=== PATIENT | female | born 1975 | race Caucasian/White ===

== ENCOUNTER 2020-11-26 11:20 | Inpatient (IN) ==
--- NOTE | 2020-11-26 12:31 | XRay Report ---
XR chest 1V portable CLINICAL HISTORY: Atypical chest pain COMPARISON STUDY: No previous studies for comparison. FINDINGS: The cardiac and mediastinal contours are normal. There is no evidence of focal pulmonary co nsolidation. There is no evidence of failure. No pleural effusions are visualized.[ IMPRESSION: No active disease in the chest. ACT 112: Negative or not required by law. Electronically signed by: Pranav Mansfield M.D. 11/26/2020 12:30 PM
[2020-11-26 12:41] LABS: Basophils # (auto) 0.03 K/uL (0-0.2); Basophils % (auto) 0.3 %; Eosinophils # (auto) 0.08 K/uL (0-0.5); Eosinophils % (auto) 0.8 %; Hematocrit (blood only) 42.7 % (37-47); Hemoglobin 15.1 g/dL (12.0-16.0); Immature Granulocytes # (auto) 0.03 K/uL (0.00-0.02); Immature Granulocytes % (auto) 0.3 %; Lymphocytes # (auto) 2.87 K/uL (1.2-3.4); Lymphocytes % (auto) 29.7 %; Mean Corpuscular Hemoglobin 30.8 pg (25-34); Mean Corpuscular Hgb Conc 35.4 g/dL (32-36); Mean Platelet Volume 8.9 fL (7.4-10.4); Monocytes # (auto) 0.55 K/uL (0.11-0.59); Monocytes % (auto) 5.7 %; Neutrophils # (auto) 6.09 K/uL (1.4-6.5); Neutrophils % (auto) 63.2 %; Platelet Count 406 K/uL (130-400); RDW Coefficient of Variation 13.2 % (11.5-14.5); Red Blood Count 4.91 M/uL (4.2-5.4); White Blood Count 9.65 K/uL (4.8-10.8)
[2020-11-26 13:12] LABS: Alanine Aminotransferase 27 U/L (12-78); Albumin Globulin Ratio 0.9 (0.9-2); Albumin Level 4.2 gm/dl (3.4-5.0); Alkaline Phosphatase 116 U/L (45-117); Aspartate Aminotransferase 19 U/L (15-37); BUN Creatinine Ratio 11.9 (10-20); Bilirubin,Total 0.8 mg/dl (0.2-1); Blood Urea Nitrogen 11 mg/dl (7-18); Calcium 9.1 mg/dl (8.5-10.1); Carbon Dioxide 25 mmol/L (21-32); Chloride 100 mmol/L (98-107); Creatinine Clr Calc Pharmacy 74.5 ml/min; Est GFR (African American) 89.6 ml/min; Est GFR (Non-African American) 77.3 ml/min; Globulin 4.8 gm/dl (2.5-4.0); Glucose 103 mg/dl (70-99); Potassium 2.3 mmol/L (3.5-5.1); Sodium 135 mmol/L (136-145); Troponin I < 0.015 ng/ml (0-0.045)
--- NOTE | 2020-11-26 14:06 | Electrocardiogram Report ---
Test Reason : Blood Pressure : / mmHG Vent. Rate : 077 BPM Atrial Rate : 077 BPM P-R Int : 142 ms QRS Dur : 086 ms QT Int : 426 ms P-R-T Axes : 056 004 102 degrees QTc Int : 482 ms Normal sinus rhythm Abnormal ECG When compared with ECG of 11-MAR-2018 09:30, Vent. rate has increased BY 26 BPM Inverted T waves have replaced nonspecific T wave abnormality in Lateral leads QT has lengthened Confirmed by Lorne Robert ([id number]) on 11/26/2020 2:05:40 PM Referred By: Confirmed By:Lorne Robert
--- NOTE | 2020-11-26 15:28 | Emergency Department Note ---
History of Present Illness General Chief complaint: Chest Pain Stated complaint: CHEST PAIN, VERTIGO, HANDS/ FEET TINGLY Time Seen by Provider: 11/26/20 14:50 History of Present Illness Maximum Pain Intensity: 5 -Patient is a 45-year-old female recently diagnosed with hypertension, who pr esents the emergency department for evaluation of episodes of chest pain and headache that is been present for about a week. Patient states that she had a right total knee arthroplasty performed at [facility] 3 months ago. While in the hospital her blood pressure continually was high, and she was diagnosed with hypertension. She was placed on Norvasc 10 mg and hydrochlorothiazide 25 mg. She has been taking these medications as prescribed. In the last week, she has noticed episodes of chest discomfort and pressure. It is pinpoint and located in the left upper chest. With the discomfort she also has associated headache and some slight shortness of breath. She is also noticed some swelling in her legs, and over the weekend began to have some tingling in her hands and in her feet. She has been checking her blood pressure at home, and the diastolic number has been high, in the 90s. She also has noticed episodes of increased heart rate, as documented by her apple watch. She currently only has a minor headache, is not currently experiencing any chest pain. She called her family doctor's office, and they referred her to the emergency department. Postoperatively, she was on a baby aspirin for DVT prophylaxis. Home Medications Medication Instructions Recorded Confirmed Type amlodipine 10 mg tablet 10 mg PO QAM 11/26/20 11/26/20 History esomeprazole magnesium 20 mg 20 mg PO QAM 11/26/20 11/26/20 History capsule,delayed release (Nexium) hydrochlorothiazide 25 mg tablet 25 mg PO QAM 11/26/20 11/26/20 History ibuprofen 200 mg tablet 400 mg PO Q6H PRN 11/26/20 11/26/20 History medroxyprogesterone 150 mg/mL 150 mg IM Q90D 11/26/20 11/26/20 History intramuscular suspension Allergies Allergy/AdvReac Type Severity Reaction Status Date / Time Sulfa (Sulfonamide Allergy Severe SHORTNESS Verified 11/26/20 15:53 Antibiotics) OF BREATH prednisone Allergy Intermediate tachy and Unverified 11/26/20 15:53 elevated bp acetaminophen AdvReac Mild Hallucinati Verified 11/26/20 18:23 ng Penicillins AdvReac Mild Nausea Verified 11/26/20 18:23 Past Med/Surg History Medical History GERD (gastroesophageal reflux disease) HTN (hypertension) Surgical History History of total right knee replacement Hx of cholecystectomy Family History Father Lung cancer Mother Uterine cancer Social History Smoking Status: Former smoker Smoking End Date: 2013; Second Hand Exposure: Yes; Do You Dip or Chew Tobacco: No; Tobacco Cessation Education Requested by Patient: No Hx Alcohol Use: No Hx Substance Use: No Preferred Language: Samoan 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 Beliefs That Will Affect Care: None Current Living Situation: Spouse and Family Other Information That Helps Us Care for You: No Feels Safe at Home: Yes Assistive Devices: None Review of Systems A total of 10 systems reviewed and were otherwise negative Physical Exam Vital Signs Vital Signs - 24 hr 11/26/20 11:21 11/26/20 14:46 11/26/20 15:00 Temperature 36.8 C Temperature Source Temporal Artery Scan Pulse Rate 96 H 89 84 Pulse Rate from SpO2 Sensor 90 84 Respiratory Rate 19 25 H 21 Blood Pressure 140/90 141/92 H 134/93 Blood Pressure Mean 106 108 106 Pulse Oximetry 99 100 100 Oxygen Delivery Method Room Air Sepsis Recent Fever Within 48 Hours No Sepsis New/Unexplained Change in Mental Status N/A Sepsis Action Taken by Nursing No Action Required 11/26/20 15:30 11/26/20 16:00 11/26/20 16:30 Temperature Temperature Source Pulse Rate 81 80 Pulse Rate from SpO2 Sensor 82 83 Respiratory Rate 21 24 Blood Pressure 123/88 125/84 118/83 Blood Pressure Mean 99 97 94 Pulse Oximetry 100 99 Oxygen Delivery Method Sepsis Recent Fever Within 48 Hours Sepsis New/Unexplained Change in Mental Status Sepsis Action Taken by Nursing 11/26/20 17:00 11/26/20 17:30 Temperature Temperature Source Pulse Rate 84 89 Pulse Rate from SpO2 Sensor 84 88 Respiratory Rate 21 16 Blood Pressure 116/79 127/89 Blood Pressure Mean 91 101 Pulse Oximetry 100 98 Oxygen Delivery Method Sepsis Recent Fever Within 48 Hours Sepsis New/Unexplained Change in Mental Status Sepsis Action Taken by Nursing CONSTITUTIONAL: Patient is a well-appearing 45-year-old female who is awake and alert and in no acute distress. EYES: Pupils equal, round, reactive to light and accommodation. EOMs intact without nystagmus. Sclera are anicteric. ENT: Tympanic membranes intact, with normal landmarks. External canals are clear. Oral and nasopharynx are clear. Mucous membranes are moist, no lesions, tongue and gums appear normal. CARDIOVASCULAR: Regular rate and rhythm, with normal S1 and S2, no murmur or gallop or rub is heard. Peripheral pulses easy to palpable. RESPIRATORY: Breath sounds equal and clear to auscultation without wheezes, rales, or rhonchi heard. Full and equal chest expansion without accessory muscle use or retractions. GI: Bowel sounds are present. Abdomen is soft, nontender, nondistended. No organomegaly. No pulsatile masses. No guarding or rebound. MUSCULOSKELETAL: Full range of motion of extremities x 4 with good strength. No cyanosis, edema, joint tenderness or swelling. No deformity. Calves are soft and nontender bilaterally. No pitting edema. INTEGUMENTARY: No lesions or rash, normal skin turgor. NEUROLOGICAL: Alert, oriented, and cooperative. Cranial nerves, sensation and strength grossly intact. Pupils round, equal, and react to light, EOMs are full. LYMPH: No lymphadenopathy. Course Course Patient was seen and assessed as above. Old records are reviewed. Critical pathways have been implemented prior to my assessment of the patient. EKG, chest x-ray and laboratory studies had been obtained including CBC with diffe rential, CMP and troponin. Laboratory studies noted a normal white count at 9600, H&H 15 and 42, platelet count is 406,000. Sodium 135, potassium low at 2.3. The remainder of the electrolytes were within normal limits. Renal functions were normal. Troponin was negative. Transaminases are not elevated. Chest x-ray was unremarkable. EKG was without acute ischemic changes. After my assessment of the patient, I ordered a D-dimer, mag, urine dip and and give the patient 20 mEq of potassium orally. I did also later order 10 mEq K rider x2. Patient's D-dimer was elevated at 1060. Given her symptoms including palpitations, chest pain and leg swelling, I performed a CT scan of the chest to evaluate for PE. Magnesium was normal. Urine dip and test were clear. Chest CT was negative for PE. I did review the patient history and presentation with attending physician. She felt that given the profound hypokalemia, admission/observation was warranted for repletion. This was discussed with the patient and she was in agreement. [facility] Patient was reviewed with DIVYA Huffman. Please refer to admission orders and H&P for further information. Administered Medications Discontinued Medications Potassium Chloride (K Bryson / Wtr) 10 meq in 100 mls @ 100 mls/hr IV Q1H ТАТЬЯНА Stop: 11/26/20 19:29 Last Infusion: 11/26/20 22:41 Dose: 0 mls/hr Documented by: [id number] Admin: 11/26/20 19:02 Dose: 100 mls/hr Documented by: [id number] Infusion: 11/26/20 18:35 Dose: 100 mls/hr Documented by: [id number] Admin: 11/26/20 17:35 Dose: 100 mls/hr Documented by: [id number] Ioversol (Optiray 320 125ml) 120 ml IV ONCE ONE Stop: 11/26/20 16:45 Last Admin: 11/26/20 16:44 Dose: 120 ml Documented by: [id number] Potassium Chloride (Potassium Chloride Crtab 20 Meq Tabcr) 40 meq PO NOW STA Stop: 11/26/20 16:07 Last Admin: 11/26/20 16:09 Dose: 40 meq Documented by: [id number] Potassium Chloride (Potassium Chloride Crtab 20 Meq Tabcr) 40 meq PO ONE STA Stop: 11/26/20 18:53 Last Admin: 11/26/20 19:21 Dose: 40 meq Documented by: [id number] Potassium Chloride (Potassium Chloride Crtab 20 Meq Tabcr) 40 meq PO ONE ONE Stop: 11/26/20 21:01 Last Admin: 11/26/20 22:01 Dose: 40 meq Documented by: [id number] Medical Decision Making Differential Diagnosis Differential diagnosis includes acute myocardial infarction, acute coronary syndrome, myocarditis, pericarditis, pericardial effusions /tamponade, esophageal perforation, pulmonary embolism, pneumonia, pneumothorax, cardiomyopathy, congestive heart failure, anemia , COPD/asthma exacerbation, musculoskeletal, anxiety, costochondritis,. Medical Records Attestation: I reviewed the patient's medical records. Home Medications Current Medication List: was personally reviewed by me Laboratory Data Attestation: I reviewed the patient's lab results. Result diagrams: 11/26/20 12:25 11/26/20 12:25 Lab Results 11/26/20 11/26/20 11/26/20 Range/Units 12:25 12:25 12:25 WBC 9.65 (4.8-10.8) K/uL RBC 4.91 (4.2-5.4) M/uL Hgb 15.1 (12.0-16.0) g/dL Hct 42.7 (37-47) % MCV 87.0 (80-100) fL MCH 30.8 (25-34) pg MCHC 35.4 (32-36) g/dL RDW Std Deviation 42.0 (36.4-46.3) fL RDW Coeff of Rafaela 13.2 (11.5-14.5) % Plt Count 406 H (130-400) K/uL MPV 8.9 (7.4-10.4) fL Immature Gran % (Auto) 0.3 % Neut % (Auto) 63.2 % Lymph % (Auto) 29.7 % Hyde % (Auto) 5.7 % Eos % (Auto) 0.8 % Baso % (Auto) 0.3 % Neut # (Auto) 6.09 (1.4-6.5) K/uL Lymph # (Auto) 2.87 (1.2-3.4) K/uL Hyde # (Auto) 0.55 (0.11-0.59) K/uL Eos # (Auto) 0.08 (0-0.5) K/uL Baso # (Auto) 0.03 (0-0.2) K/uL Immature Gran # (Auto) 0.03 H (0.00-0.02) K/uL PT Cancelled INR Cancelled APTT Cancelled PTT Ratio Cancelled D-Dimer (0-500) ug/L FEU Sodium 135 L (136-145) mmol/L Potassium 2.3 L* (3.5-5.1) mmol/L Chloride 100 (98-107) mmol/L Carbon Dioxide 25 (21-32) mmol/L Anion Gap 10.0 (3-11) BUN 11 (7-18) mg/dl Creatinine 0.91 (0.6-1.2) mg/dl Est Cr Clr Drug Dosing 74.5 ml/min Est GFR ( Amer) 89.6 ml/min Est GFR (Non-Af Amer) 77.3 ml/min BUN/Creatinine Ratio 11.9 (10-20) Glucose 103 H (70-99) mg/dl Calcium 9.1 (8.5-10.1) mg/dl Magnesium (1.8-2.4) mg/dl Total Bilirubin 0.8 (0.2-1) mg/dl AST 19 (15-37) U/L ALT 27 (12-78) U/L Alkaline Phosphatase 116 (45-117) U/L Troponin I < 0.015 (0-0.045) ng/ml Total Protein 9.0 H (6.4-8.2) gm/dl Albumin 4.2 (3.4-5.0) gm/dl Globulin 4.8 H (2.5-4.0) gm/dl Albumin/Globulin Ratio 0.9 (0.9-2) POC Urine Protein (Negative) POC Ur Glucose (UA) (Normal) POC Urine Ketones (Negative) POC Urine Blood (Negative) POC Urine Nitrite (Negative) POC Urine Bilirubin (Negative) POC Urine Urobilinogen (Normal) POC U Leukocyte Esteras (Negative) POC Ur Test (NEG) 11/26/20 11/26/20 11/26/20 Range/Units 12:25 15:25 15:50 WBC (4.8-10.8) K/uL RBC (4.2-5.4) M/uL Hgb (12.0-16.0) g/dL Hct (37-47) % MCV (80-100) fL MCH (25-34) pg MCHC (32-36) g/dL RDW Std Deviation (36.4-46.3) fL RDW Coeff of Rafaela (11.5-14.5) % Plt Count (130-400) K/uL MPV (7.4-10.4) fL Immature Gran % (Auto) % Neut % (Auto) % Lymph % (Auto) % Hyde % (Auto) % Eos % (Auto) % Baso % (Auto) % Neut # (Auto) (1.4-6.5) K/uL Lymph # (Auto) (1.2-3.4) K/uL Hyde # (Auto) (0.11-0.59) K/uL Eos # (Auto) (0-0.5) K/uL Baso # (Auto) (0-0.2) K/uL Immature Gran # (Auto) (0.00-0.02) K/uL PT INR APTT PTT Ratio D-Dimer 1060 H* (0-500) ug/L FEU Sodium (136-145) mmol/L Potassium (3.5-5.1) mmol/L Chloride (98-107) mmol/L Carbon Dioxide (21-32) mmol/L Anion Gap (3-11) BUN (7-18) mg/dl Creatinine (0.6-1.2) mg/dl Est Cr Clr Drug Dosing ml/min Est GFR ( Amer) ml/min Est GFR (Non-Af Amer) ml/min BUN/Creatinine Ratio (10-20) Glucose (70-99) mg/dl Calcium (8.5-10.1) mg/dl Magnesium 2.4 (1.8-2.4) mg/dl Total Bilirubin (0.2-1) mg/dl AST (15-37) U/L ALT (12-78) U/L Alkaline Phosphatase (45-117) U/L Troponin I (0-0.045) ng/ml Total Protein (6.4-8.2) gm/dl Albumin (3.4-5.0) gm/dl Globulin (2.5-4.0) gm/dl Albumin/Globulin Ratio (0.9-2) POC Urine Protein Trace H (Negative) POC Ur Glucose (UA) Normal (Normal) POC Urine Ketones Negative (Negative) POC Urine Blood Trace H (Negative) POC Urine Nitrite Negative (Negative) POC Urine Bilirubin Negative (Negative) POC Urine Urobilinogen Normal (Normal) POC U Leukocyte Esteras Trace H (Negative) POC Ur Test NEG (NEG) Imaging Data Attestation: I personally reviewed and interpreted this imaging study as follows: Radiologist's Impression: Chest X-Ray 11/26/20 12:00 XR chest 1V portable CLINICAL HISTORY: Atypical chest pain COMPARISON STUDY: No previous studies for comparison. FINDINGS: The cardiac and mediastinal contours are normal. There is no evidence of focal pulmonary consolidation. There is no evidence of failure. No pleural effusions are visualized.[ IMPRESSION: No active disease in the chest. ACT 112: Negative or not required by law. Electronically signed by: Pranav Mansfield M.D. 11/26/2020 12:30 PM Chest CTA 11/26/20 16:11 CT ANGIOGRAPHY OF THE CHEST, PULMONARY EMBOLUS PROTOCOL CLINICAL HISTORY: Chest pain. Shortness of breath. Evaluate for pulmonary embolus. COMPARISON STUDY: Chest radiograph performed earlier today. TECHNIQUE: Following IV administration of 120 mL of Optiray, helical axial images of the chest were obtained utilizing the pulmonary embolus protocol. Maximal intensity projections and sagittal and coronal reformats were viewed on an independent 3D workstation. IV contrast was administered without complication. Automated exposure control was utilized for the study. A dose lowering technique was utilized adhering to the principles of ALARA. CT DOSE: 300.18 mGy.cm FINDINGS: No pulmonary emboli are identified. There is no thoracic aortic dissection. The size of the heart is normal. No enlarged thoracic lymph nodes are present. A small hiatal hernia is present. There is no pneumothorax or pleural effusion. There is no consolidation to suggest pneumonia. No suspicious pulmonary nodules are present. There is mild upper lobe predominant paraseptal emphysema. No acute fracture or suspicious lesion is identified within visualized portions of the bony thorax. A hypodense lesion within the medial segment of the left hepatic lobe is partially imaged on this exam. This measures at least 1.3 cm. IMPRESSION: 1. No pulmonary emboli identified. 2. No acute process within the chest. 3. Moderate upper lobe predominant paraseptal emphysema. 4. Small hiatal hernia. ACT 112: Negative or not required by law. Electronically signed by: Nolan Olmos M.D. 11/26/2020 4:58 PM ECG Data Attestation: I personally reviewed and interpreted this ECG as follows: Indication: + chest pain Rate (beats per minute): 77 Rhythm: + normal sinus ECG Burdine: + Normal ECG ST segments: + Nonspecific ST abnormalities; no ST depression or no ST elevation Comparison ECG Date: from (March 2018) Change: the following changes noted (T wave inversions replaced by nonspecific T wave abnormalities.) MDM Narrative See ED course Impression & Plan Hypokalemia, Chest pain Discharge Plan Visit Data Chief Complaint: Chest Pain Stated Complaint: CHEST PAIN, VERTIGO, HANDS/ FEET TINGLY ED Provider: Laure Mahoney ED Midlevel Provider: Tod Damon Discharge Problem: Hypokalemia, Chest pain Patient Disposition: Admitted As Inpatient Discharge Instructions Interventions: ED Discharge Assessment Last Done: 11/26/20 20:07
[2020-11-26 16:00] LABS: POC Urine Bilirubin Negative (Negative); POC Urine Blood Trace (Negative); POC Urine Glucose Normal (Normal); POC Urine Ketones Negative (Negative); POC Urine Leukocytes Trace (Negative); POC Urine Nitrite Negative (Negative); POC Urine Protein Trace (Negative); POC Urine Urobilinogen Normal (Normal)
[2020-11-26] MEDS ORDERED: POTASSIUM CHLORIDE CRTAB 20 MEQ TABCR PO STA ×2 (16:06→18:52)
[2020-11-26 16:11] LABS: D Dimer 1060 ug/L FEU (0-500)
[2020-11-26] MEDS ORDERED: OPTIRAY 320 125ml IV ONE (16:44)
--- NOTE | 2020-11-26 16:59 | CT Scan Report ---
CT ANGIOGRAPHY OF THE CHEST, PULMONARY EMBOLUS PROTOCOL CLINICAL HISTORY: Chest pain. Shortness of breath. Evaluate for pulmonary embolus. COMPARISON STUDY: Chest radiograph performed earlier today. TECHNIQUE: Following IV administration of 120 mL of Optiray, helical axial images of the chest were o btained utilizing the pulmonary embolus protocol. Maximal intensity projections and sagittal and cor onal reformats were viewed on an independent 3D workstation. IV contrast was administered without co mplication. Automated exposure control was utilized for the study. A dose lowering technique was ut ilized adhering to the principles of ALARA. CT DOSE: 300.18 mGy.cm FINDINGS: No pulmonary emboli are identified. There is no thoracic aortic dissection. The size of th e heart is normal. No enlarged thoracic lymph nodes are present. A small hiatal hernia is present. Th ere is no pneumothorax or pleural effusion. There is no consolidation to suggest pneumonia. No suspic ious pulmonary nodules are present. There is mild upper lobe predominant paraseptal emphysema. No acu te fracture or suspicious lesion is identified within visualized portions of the bony thorax. A hypod ense lesion within the medial segment of the left hepatic lobe is partially imaged on this exam. This measures at least 1.3 cm. IMPRESSION: 1. No pulmonary emboli identified. 2. No acute process within the chest. 3. Moderate upper lobe predominant paraseptal emphysema. 4. Small hiatal hernia. ACT 112: Negative or not required by law. Electronically signed by: Nolan Olmos M.D. 11/26/2020 4:58 PM
[2020-11-26] MEDS: POTASSIUM CHLORIDE / WTR 10 MEQ/100 ML PLCT IV SCH ×2 (17:35→19:02)
--- NOTE | 2020-11-26 18:58 | History & Physical Report ---
Date of Service November 26, 2020 Assessment & Plan (1) Chest pain: (2) Hypokalemia: Plan: -[facility] -Patient presenting from home with reports of chest pain and pedal edema -In the ED, K+ 2.3, Mg+ WNL -Received potassium chloride 40 meq PO and 2 10meq IV potassium riders in ED; will give additional 40meq p.o. now and additional dose at 9 PM. Recheck K+ tonight -Started HCTZ a couple of months ago - likely cause of hypokalemia -EKG shows new T wave inversions in the lateral leads, initial troponin negative -Continue to cycle cardiac enzymes, resting echo (3) Elevated d-dimer: Plan: -CTA chest negative for PE -Check lower extremity Dopplers for completeness (4) HTN (hypertension): Plan: -BP controlled, continue amlodipine -Hold HCTZ until potassium normalizes (5) DVT prophylaxis: Plan: -SCDs History of Present Illness Chief Complaint: Chest pain Primary Care Provider: Rikki Kaminski MD 45-year-old female with PMH HTN, GERD, and other problems listed below who presents to the ED for evaluation of chest pain. Patient reports over the past couple of weeks, she has been having intermittent left-sided chest pain. Describes the pain as a pressure. No specific causative or alleviating factors. Today while seated at work, she developed this discomfort which lasted for about 30 minutes. Patient then presented to the ED for further evaluation. She also notes increased pedal edema over the past couple of days. No shortness of breath. Reports some intermittent lightheadedness and dizziness with standing too quickly, no syncopal event. Denies abdominal pain, nausea, vomiting, diarrhea. No other recent illness, fever, chills. She denies urinary symptoms. In the ED, labs show potassium 2.3. D-dimer was elevated however CTA chest was negative for pulmonary embolism. EKG shows new T wave inversions in the lateral leads, initial troponin negative. Patient was given potassium chloride 40meq p.o. and 2 potassium 10meq IV riders. Allergies Allergy/AdvReac Type Severity Reaction Status Date / Time Sulfa (Sulfonamide Allergy Severe SHORTNESS Verified 11/26/20 15:53 Antibiotics) OF BREATH prednisone Allergy Intermediate tachy and Unverified 11/26/20 15:53 elevated bp acetaminophen AdvReac Mild Hallucinati Verified 11/26/20 18:23 ng Penicillins AdvReac Mild Nausea Verified 11/26/20 18:23 Home Medications Medication Instructions Recorded Confirmed Type amlodipine 10 mg tablet 10 mg PO QAM 11/26/20 11/26/20 History esomeprazole magnesium 20 mg 20 mg PO QAM 11/26/20 11/26/20 History capsule,delayed release (Nexium) hydrochlorothiazide 25 mg tablet 25 mg PO QAM 11/26/20 11/26/20 History ibuprofen 200 mg tablet 400 mg PO Q6H PRN 11/26/20 11/26/20 History medroxyprogesterone 150 mg/mL 150 mg IM Q90D 11/26/20 11/26/20 History intramuscular suspension potassium chloride 20 mEq 20 meq PO DAILY #30 tab 11/27/20 Rx tablet,extended release Past Med/Surg History Medical History GERD (gastroesophageal reflux disease) HTN (hypertension) Surgical History History of total right knee replacement Hx of cholecystectomy Family History Father Lung cancer Mother Uterine cancer Social History Smoking Status: Former smoker Second Hand Exposure: Yes; Hx Alcohol Use: No Hx Substance Use: No Preferred Language: Cameroonian 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 Beliefs That Will Affect Care: None Current Living Situation: Spouse and Family Feels Safe at Home: Yes Assistive Devices: None Review of Systems Review of Systems: ROS per HPI, all other systems reviewed and negative Physical Exam Constitutional: WD/WN, vitals as above Eyes: PERRL, conjunctivae normal, anicteric sclerae ENMT: external ear and nose normal, oropharynx normal Respiratory: normal respiratory effort, lungs clear to auscultation Cardiovascular: Rate/Rhythm: regular rate and regular rhythm Vessels: normal peripheral pulses Extremities: no edema Gastrointestinal (Abdomen): normal bowel sounds, soft, nontender, no hepatosplenomegaly Musculoskeletal: no cyanosis or clubbing, extremities motor strength 5/5 Skin: no rashes, warm and dry Neurologic: PERRL, EOMI, accommodation nl, no face palsy, no dysarthria Psychiatric: A+Ox3, euthymic affect Results & Data Results & Data ([facility]) Vital Signs (Past 12 Hours) Vital Signs Temp Pulse Resp BP Pulse Ox 11/26/20 18:31 115 H 19 140/91 100 11/26/20 18:00 100 H 15 120/103 H 100 11/26/20 17:30 89 16 127/89 98 11/26/20 17:00 84 21 116/79 100 11/26/20 16:30 80 24 118/83 99 11/26/20 16:00 81 21 125/84 100 11/26/20 15:30 123/88 11/26/20 15:00 84 21 134/93 100 11/26/20 14:46 89 25 H 141/92 H 100 11/26/20 11:21 36.8 C 96 H 19 140/90 99 Laboratory Results Short CBC 11/26/20 Range/Units 12:25 WBC 9.65 (4.8-10.8) K/uL Hgb 15.1 (12.0-16.0) g/dL Hct 42.7 (37-47) % Plt Count 406 H (130-400) K/uL [facility] 11/26/20 12:25 Sodium 135 L Potassium 2.3 L* Chloride 100 Carbon Dioxide 25 BUN 11 Creatinine 0.91 Glucose 103 H Calcium 9.1 Cardiac Enzymes 11/26/20 Range/Units 12:25 Troponin I < 0.015 (0-0.045) ng/ml Liver Function 11/26/20 Range/Units 12:25 Total Bilirubin 0.8 (0.2-1) mg/dl AST 19 (15-37) U/L ALT 27 (12-78) U/L Alkaline Phosphatase 116 (45-117) U/L Albumin 4.2 (3.4-5.0) gm/dl Diagnostic Findings Short CBC 11/26/20 Range/Units 12:25 WBC 9.65 (4.8-10.8) K/uL Hgb 15.1 (12.0-16.0) g/dL Hct 42.7 (37-47) % Plt Count 406 H (130-400) K/uL [facility] 11/26/20 12:25 Sodium 135 L Potassium 2.3 L* Chloride 100 Carbon Dioxide 25 BUN 11 Creatinine 0.91 Glucose 103 H Calcium 9.1 Cardiac Enzymes 11/26/20 Range/Units 12:25 Troponin I < 0.015 (0-0.045) ng/ml Liver Function 11/26/20 Range/Units 12:25 Total Bilirubin 0.8 (0.2-1) mg/dl AST 19 (15-37) U/L ALT 27 (12-78) U/L Alkaline Phosphatase 116 (45-117) U/L Albumin 4.2 (3.4-5.0) gm/dl Code Status & VTE Plan VTE Prophylaxis Plan VTE Prophylaxis will be ordered: Yes Supervising Physician Co-Signing Physician Notes Pt was seen and examined. Agreed with Marylou STOKES exam, assessment and plan. 45-year-old female with PMH HTN, GERD to the ED for evaluation of chest pain. Pt said that for the last few weeks she has been having intermittent left-sided chest pain. She said that today while at work her chest pain worsening. Describes the pain as a pressure. Denies any abdominal pain, nausea, vomiting, diarrhea, fever or chills. In the ED, labs show potassium 2.3.and D-dimer was elevated. CTA chest was negative for pulmonary embolism. EKG shows new T wave inversions in the lateral leads, initial troponin negative. Potassium replaced in the ER. Will give additional K supplement and check BMP later. Will trend troponin. Will get an ECHO and repeat EKG in the am. Will monitor in telemetry closely. MD Abner
[2020-11-26] MEDS ORDERED: ACETAMINOPHEN 325 MG TAB PO PRN (20:38)
[2020-11-26] MEDS ORDERED: POTASSIUM CHLORIDE CRTAB 20 MEQ TABCR PO ONE (21:00)
[2020-11-26 23:29] LABS: Potassium 3.3 mmol/L (3.5-5.1)
[2020-11-26 23:38] LABS: Troponin I < 0.015 ng/ml (0-0.045)
[2020-11-27] MEDS ORDERED: POTASSIUM CHLORIDE CRTAB 20 MEQ TABCR PO STA (07:00)
--- NOTE | 2020-11-27 07:02 | Ultrasound Report ---
ULTRASOUND BILATERAL LOWER EXTREMITY VENOUS CLINICAL HISTORY: Lower extremity edema. COMPARISON STUDY: No priors. TECHNIQUE: Real-time, grayscale, and color Doppler sonography of the deep veins of the right and left lower extremity was performed from the inguinal crease to the calf. Compression and augmentation wer e utilized. FINDINGS: There is no sonographic evidence of deep venous thrombosis identified in the right or left lower extremity. The common femoral, superficial femoral, and popliteal veins are patent and normally compressible bilaterally. The greater saphenous vein and the profunda femoris vein at the junction w ith the common femoral vein are clear in both legs. The visualized calf veins are patent bilaterally. IMPRESSION: There is no sonographic evidence of deep venous thrombosis identified in the right or lef t lower extremity. ACT 112: Negative or not required by law. Electronically signed by: Tyrone Smyth M.D. 11/27/2020 7:00 AM
[2020-11-27 07:35] LABS: Hematocrit (blood only) 36.5 % (37-47); Hemoglobin 12.5 g/dL (12.0-16.0); Mean Corpuscular Hgb Conc 34.2 g/dL (32-36); Mean Corpuscular Volume 87.7 fL (80-100); Mean Platelet Volume 8.8 fL (7.4-10.4); Platelet Count 320 K/uL (130-400); RDW Coefficient of Variation 13.8 % (11.5-14.5); RDW Standard Deviation 44.3 fL (36.4-46.3); Red Blood Count 4.16 M/uL (4.2-5.4)
[2020-11-27 08:16] LABS: Blood Urea Nitrogen 12 mg/dl (7-18); Carbon Dioxide 24 mmol/L (21-32); Chloride 112 mmol/L (98-107); Creatinine Clr Calc Pharmacy 94.4 ml/min; Est GFR (African American) 118.9 ml/min; Est GFR (Non-African American) 102.6 ml/min; Glucose 96 mg/dl (70-99); Potassium 4.1 mmol/L (3.5-5.1); Sodium 141 mmol/L (136-145); Troponin I < 0.015 ng/ml (0-0.045)
[2020-11-27] MEDS ORDERED: amLODIPine BESYLATE 5 MG TAB PO SCH (09:00)
[2020-11-27] MEDS ORDERED: PANTOprazole 40 MG TAB PO SCH (09:00)
--- NOTE | 2020-11-27 15:33 | Electrocardiogram Report ---
Test Reason : Blood Pressure : / mmHG Vent. Rate : 065 BPM Atrial Rate : 065 BPM P-R Int : 124 ms QRS Dur : 080 ms QT Int : 414 ms P-R-T Axes : 044 025 049 degrees QTc Int : 430 ms Poor data quality, interpretation may be adversely affected Normal sinus rhythm with sinus arrhythmia Nonspecific T wave abnormality Abnormal ECG When compared with ECG of 26-NOV-2020 11:32, T wave inversion no longer evident in Lateral leads Confirmed by Lorne Robert ([id number]) on 11/27/2020 3:32:57 PM Referred By: REFERRED SELF Confirmed By:Lorne Robert
--- NOTE | 2020-11-27 15:34 | Discharge Summary ---
Date of Service November 27, 2020 Admission HPI Per Admitting Provider 45-year-old female with PMH HTN, GERD, and other problems listed below who presents to the ED for evaluation of chest pain. Patient reports over the past couple of weeks, she has been having intermittent left-sided chest pain. Describes the pain as a pressure. No specific causative or alleviating factors. Today while seated at work, she developed this discomfort which lasted for about 30 minutes. Patient then presented to the ED for further evaluation. She also notes increased pedal edema over the past couple of days. No shortness of breath. Reports some intermittent lightheadedness and dizziness with standing too quickly, no syncopal event. Denies abdominal pain, nausea, vomiting, diarrhea. No other recent illness, fever, chills. She denies urinary symptoms. In the ED, labs show potassium 2.3. D-dimer was elevated however CTA chest was negative for pulmonary embolism. EKG shows new T wave inversions in the lateral leads, initial troponin negative. Patient was given potassium chloride 40meq p.o. and 2 potassium 10meq IV riders. Admission Exam Per Admitting Provider Constitutional: WD/WN, vitals as above Eyes: PERRL, conjunctivae normal, anicteric sclerae ENMT: external ear and nose normal, oropharynx normal Respiratory: normal respiratory effort, lungs clear to auscultation Cardiovascular: regular rate and regular rhythm Vessels: normal peripheral pulses Extremities: no edema Gastrointestinal: normal bowel sounds, soft, nontender, no hepatosplenomegaly Musculoskeletal: no cyanosis or clubbing, extremities motor strength 5/5 Skin: no rashes, warm and dry Neurologic: PERRL, EOMI, accommodation nl, no face palsy, no dysarthria Psychiatric: A+Ox3, euthymic affect Principal Diagnosis Chest pain Hypokalemia Hypertension Elevated D-Dimer Discharge Exam General- No acute distress Head- atraumatic Eyes- PERRL, EOMI, ENT- oropharynx clear Neck- supple, no JVD Lungs- clear to auscultation Heart- regular rhythm; no murmur Abdomen- normal bowel sounds, soft, nontender Extremities- no calf tenderness Neuro- alert, oriented x 3; PERRL, EOMI; no facial palsy; no dysarthria Skin- warm & dry Discharge Data Allergies Allergy/AdvReac Type Severity Reaction Status Date / Time Sulfa (Sulfonamide Allergy Severe SHORTNESS Verified 11/26/20 15:53 Antibiotics) OF BREATH prednisone Allergy Intermediate tachy and Unverified 11/26/20 15:53 elevated bp acetaminophen AdvReac Mild Hallucinati Verified 11/26/20 18:23 ng Penicillins AdvReac Mild Nausea Verified 11/26/20 18:23 Consultations 11/26/20 17:39 ED Decision to Admit Stat Ordered Studies 11/26/20 16:11 CT angio chest PE protocol Stat 11/26/20 18:18 US venous doppler LE BI Routine ULTRASOUND BILATERAL LOWER EXTREMITY VENOUS CLINICAL HISTORY: Lower extremity edema. COMPARISON STUDY: No priors. TECHNIQUE: Real-time, grayscale, and color Doppler sonography of the deep veins of the right and left lower extremity was performed from the inguinal crease to the calf. Compression and augmentation were utilized. FINDINGS: There is no sonographic evidence of deep venous thrombosis identified in the right or left lower extremity. The common femoral, superficial femoral, and popliteal veins are patent and normally compressible bilaterally. The greater saphenous vein and the profunda femoris vein at the junction with the common femoral vein are clear in both legs. The visualized calf veins are patent bilaterally. IMPRESSION: There is no sonographic evidence of deep venous thrombosis identified in the right or left lower extremity. ACT 112: Negative or not required by law. Electronically signed by: Tyrone Smyth M.D. 11/27/2020 7:00 AM Dictated: 11/27/20 07Transcribed: 11/27/[address] ANGIOGRAPHY OF THE CHEST, PULMONARY EMBOLUS PROTOCOL CLINICAL HISTORY: Chest pain. Shortness of breath. Evaluate for pulmonary embolus. COMPARISON STUDY: Chest radiograph performed earlier today. TECHNIQUE: Following IV administration of 120 mL of Optiray, helical axial images of the chest were obtained utilizing the pulmonary embolus protocol. Maximal intensity projections and sagittal and coronal reformats were viewed on an independent 3D workstation. IV contrast was administered without complication. Automated exposure control was utilized for the study. A dose lowering technique was utilized adhering to the principles of ALARA. CT DOSE: 300.18 mGy.cm FINDINGS: No pulmonary emboli are identified. There is no thoracic aortic dissection. The size of the heart is normal. No enlarged thoracic lymph nodes are present. A small hiatal hernia is present. There is no pneumothorax or pleural effusion. There is no consolidation to suggest pneumonia. No suspicious pulmonary nodules are present. There is mild upper lobe predominant paraseptal emphysema. No acute fracture or suspicious lesion is identified within visualized portions of the bony thorax. A hypodense lesion within the medial segment of the left hepatic lobe is partially imaged on this exam. This measures at least 1.3 cm. IMPRESSION: 1. No pulmonary emboli identified. 2. No acute process within the chest. 3. Moderate upper lobe predominant paraseptal emphysema. 4. Small hiatal hernia. ACT 112: Negative or not required by law. Electronically signed by: Nolan Olmos M.D. 11/26/2020 4:58 PM Dictated: 11/26/201652Transcribed: 11/26/201652 XR chest 1V portable CLINICAL HISTORY: Atypical chest pain COMPARISON STUDY: No previous studies for comparison. FINDINGS: The cardiac and mediastinal contours are normal. There is no evidence of focal pulmonary consolidation. There is no evidence of failure. No pleural effusions are visualized.[ IMPRESSION: No active disease in the chest. ACT 112: Negative or not required by law. Electronically signed by: Pranav Mansfield M.D. 11/26/2020 12:30 PM Dictated: 11/26/20 1229Transcribed: 11/26/20 1229 Hospital Course (1) Chest pain: Present on admission with chest pain Mostly atypical in nature since chest pain was reproducible on admission Troponin x 3 negative EKG showed non specific T wave changes ECHO showed no LV wall motion abnormality with EF 55- 60% No arrhythmia on tele monitor Resolved (2) Hypokalemia: Mostly related to HCTZ therapy K on admission 2.3, K replaced Will continue K supplement Check BMP in 1 week to monitor electrolytes resolved (3) Elevated d-dimer: CTA chest negative for PE Doppler of B/L LE showed no evidence of DVT (4) HTN (hypertension): BP controlled Continue amlodipine Will resume HCTZ on discharge (5) DVT prophylaxis: -SCDs Total Time Total Time Spent Total Time Spent (In Minutes): 35 minutes Discharge Plan Discharge Items Patient Disposition: Home - Self-Care Reason For Visit: HYPOKALEMIA Discharge Diagnosis: Chest pain Hypokalemia (Low potassium) Hypertension (High blood pressure) Elevated D-dimer Activity: Resume your previous activity Non-emergency contact: Primary Care Provider Call non-emergency contact if: you have any medication questions Follow-up/Referrals: Rikki Kaminski MD [Primary Care Provider] - (Date & Time 12/03/2020 3:20 PM Provider Rikki Kaminski MD Department [facility] ) Diet: Heart Healthy Addtl Attending Provider Instructions: Follow up with your primary care provider Dr. Kaminski on 12/03/2020 @ 3:20 PM @ the [facility] Continue monitor your blood pressure Check BMP in 1 week to monitor your electrolytes Increase potassium intake in your diet Seek medical attention if you develop any chest pain Pending Studies at Discharge: No Stand-Alone Forms: My [facility] [employer]rion[employer], Smoking Cessation Medications and DC Order Prescriptions: New potassium chloride 20 mEq tablet extended release 20 meq PO DAILY Qty: 30 RF: 0 Continued amlodipine 10 mg tablet 10 mg PO QAM RF: 0 ibuprofen 200 mg Tablet 400 mg PO Q6H PRN (Reason: Pain) RF: 0 hydrochlorothiazide 25 mg tablet 25 mg PO QAM RF: 0 medroxyprogesterone 150 mg/mL suspension 150 mg IM Q90D RF: 0 esomeprazole magnesium [Nexium] 20 mg Capsule,Delayed Release(Dr/Ec) 20 mg PO QAM RF: 0 Discharge Orders: Discharge Order (Routine); Ordered 11/27/20 Ordered By: Tin Levine Admission Data Admit Date/Time: 11/26/20 17:44 Attending Provider: Tin Levine Admit Provider: Tin Levine Primary Care Provider: Rikki Kaminski Other Providers: Tin Levine
--- NOTE | 2020-11-27 15:42 | Electrocardiogram Report ---
Test Reason : Blood Pressure : / mmHG Vent. Rate : 077 BPM Atrial Rate : 077 BPM P-R Int : 142 ms QRS Dur : 080 ms QT Int : 434 ms P-R-T Axes : 065 046 065 degrees QTc Int : 491 ms Normal sinus rhythm Nonspecific T wave abnormality Prolonged QT Abnormal ECG When compared with ECG of 26-NOV-2020 19:41, (unconfirmed) QT has lengthened Confirmed by Lorne Robert ([id number]) on 11/27/2020 3:42:35 PM Referred By: REFERRED SELF Confirmed By:Lorne Robert
== END 2020-11-27 17:29 | disposition home or self-care (01) | DRG 313 ==
LOC: ED 11:20 → 2W 17:44